=== PATIENT | female | born 1960 | race Two or more races ===

== ENCOUNTER 2019-07-01 14:09 | Emergency (ER) | payer SELFPAY ==
[~2019-07-01] VITALS: Ht 165.1 cm; Wt 68.0 kg
[2019-07-01 16:20] VITALS: BP 120/64
== END 2019-07-01 16:39 | disposition home or self-care (01) ==
LOC: EDBD 14:09 → ER 14:13
DX: F41.9 Anxiety disorder, unspecified (principal)